=== PATIENT | female | born 1965 | race Caucasian/White ===

== ENCOUNTER 2024-11-26 11:05 | Emergency (ER) | payer BC ==
[~2024-11-26] VITALS: Ht 152.4 cm; Wt 63.5 kg
--- NOTE | 2024-11-26 11:41 | ERN ---
General Chief Complaint: Breast Problem Stated Complaint: LEFT BREAST PAIN Time Seen by MD: 11:09 History of Present Illness Initial Comments 59-year-old female who presents for warmth and tenderness to the left breast beginning about 24 hours ago. She reports that she was in her normal state of health and today woke up with redness and irritation to the left breast. No fevers or systemic illness. She does report a history of breast cancer in that rest in the past requiring surgery and chemotherapy. No open wounds. No d ischarge. No masses. Allergies: Coded Allergies: prochlorperazine (Unverified Allergy, Unknown, 11/26/24) Home Meds Active Scripts Cephalexin (Cephalexin) 500 Mg Tablet, 1 TAB PO TID for 10 Days, #30 TAB 0 Refills Prov:RAISSA GRANADOS DO 11/26/24 Doxycycline Monohydrate (Doxycycline Monohydrate) 100 Mg Capsule, 1 CAP PO BID for 10 Days, #20 CAP 0 Refills Prov:RAISSA GRANADOS DO 11/26/24 Past Medical History Past Medical History: Depression, IBS, Other Medical History Other: PVC CONTRACTIONS, GASTROPARESIS Past Surgical History: Appendectomy, Tonsillectomy, ROS Dictation CONSTITUTIONAL: No chills, no fever, no weakness, no diaphoresis, no malaise. HEAD/FACE: No signs of trauma. EENT: No eye pain, no blurred vision, no tearing, no double vision, no ear pain, no ear discharge, no nose pain, no nasal congestion, no throat pain, no throat swelling, no mouth pain. RESPIRATORY: No cough, no orthopnea, no SOB, no stridor, no wheezing. CARDIOVASCULAR: No chest pain, no edema, no palpitations, no syncope. GASTROINTESTINAL/ABDOMINAL: Left breast pain GENITOURINARY: No abnormal discharge, no dysuria, no frequent urination, no hematuria. No complaints of pain in the genitals. MUSCULOSKELETAL: No back pain, no gout, no joint pain, no joint swelling, no muscle pain, no muscle stiffness, no neck pain. INTEGUMENTARY: No change in color, no change in hair/nails, no dryness, no lesion, no lumps, no rash. NEUROLOGICAL/PSYCH: No anxiety, not depressed, no emotional problem, no headache, no numbness, no pre-existing deficit, no history of seizures, no tremors, no weakness. HEMATOLOGIC/LYMPHATIC: Not anemic, no history of blood clots, no apparent bleeding, no bruising, glands not swollen. All Systems Negative, Except as Noted. Has a positive Physical Exam Physical Exam Dictation VITAL SIGNS: Reviewed. GENERAL APPEARANCE: Alert, oriented x3, no acute distress, obese. HEAD AND FACE: Non-traumatic. EYES: PERRL, pink conjunctivas, eyelid no trauma, anterior chamber clear. EARS: Pinnas intact and no signs of trauma or erythema. Ear canals clear and n o discharge. TMs no erythema. NOSE: No discharge, no bleeding. OROPHARYNX: Mouth normal, teeth no caries, tongue pink. Pharynx clear, no erythema. Tonsils no exudates, no abscesses noted. Mucous membrane moist. NECK: Supple, non-tender, no thyromegaly, no masses, no JVD, no bruits. BREAST: Deferred. CHEST: Left breast redness and tenderness throughout the entire left breast warmth and erythema LUNGS: Clear, well-ventilated, symmetric, no rales, no wheezing, no rhonchi, no stridor, good breath sounds bilaterally. HEART: Regular rate, regular rhythm, no murmur, no gallops. VASCULAR: No peripheral edema. ABDOMEN: Soft, positive bowel sounds, nondistended, no guarding, nontender, no rebound, no masses no hepatomegaly, no splenomegaly, no Berman's sign, no hernias. RECTAL: Deferred. GENITAL: Deferred. NEUROLOGICAL: Normal speech, gross motor function intact, gross sensory function intact. MUSCULOSKELETAL: Neck nontender, full range of motion, back nontender, full range of motion. EXTREMITIES: Nontender, full range of motion. SKIN: Color pink, dry, no turgor, no rash, no lacerations, no abrasions, no contusions. LYMPHATICS: Deferred. Results Laboratory and Microbiology Lab and Micro Result Laboratory Tests Test 11/26/24 11:37 White Blood Count 10.2 K/uL (4.8-10.8) Red Blood Count 4.16 MIL/uL (4.00-5.50) Hemoglobin 12.5 g/dL (12.0-16.0) Hematocrit 37.6 % (36-48) Mean Corpuscular Volume 90.4 fL (79-99) Mean Corpuscular Hemoglobin 30.0 pg (27.0-33.0) Mean Corpuscular Hemoglobin Concent 33.2 g/dL (32.0-36.0) Red Cell Distribution Width 13.2 % (11.0-15.5) Platelet Count 239 K/uL (130-400) Mean Platelet Volume 10.1 fL (7.5-10.5) Immature Granulocyte % (Auto) 0.5 % (0-1) Neutrophils (%) (Auto) 71.2 % (40.0-77.0) Lymphocytes (%) (Auto) 18.2 % (21.0-51.0) L Monocytes (%) (Auto) 8.4 % (3.0-13.0) Eosinophils (%) (Auto) 1.1 % (0.0-8.0) Basophils (%) (Auto) 0.6 % (0.0-5.0) Neutrophils # (Auto) 7.3 K/uL (1.8-7.7) Lymphocytes # (Auto) 1.9 K/uL (1.0-4.8) Monocytes # (Auto) 0.9 K/uL (0.1-1.0) Eosinophils # (Auto) 0.11 K/uL (0.00-0.70) Basophils # (Auto) 0.06 K/uL (0.00-0.20) Absolute Immature Granulocyte (auto 0.05 K/uL (0-1) Nucleated Red Blood Cells 0.0 % (0.0-0.19) Erythrocyte Sedimentation Rate 20 MM/HR (0-30) Sodium Level 140 mmol/L (136-145) Potassium Level 3.7 mmol/L (3.5-5.1) Chloride Level 102 mmol/L (101-111) Carbon Dioxide Level 25 mmol/L (21-32) Blood Urea Nitrogen 16 mg/dL (7-18) Creatinine 1.1 mg/dL (0.5-1.0) H Glomerular Filtration Rate Calc 58 mL/min (>90) Random Glucose 82 mg/dL (70-105) Total Calcium 9.0 mg/dL (8.5-10.1) C-Reactive Protein, Quantitative 157.10 mg/L (0.5-3.0) H MDM CC: Left breast pain in her redness Historian: Patient Comorbidities: History of breast cancer Limitations by social determinants of health: None Differential diagnosis: Mastitis, cellulitis, cancer, other Labs show no leukocytosis. She does have an elevated CRP, normal sed rate. Symptoms most consistent with a mastitis/cellulitis. There was no signs of SIRS or sepsis. She received a dose of IV Ancef here in the ER. I did consider admission for the patient for IV antibiotics, but since she has a relatively unremarkable labs and stable vital signs at this point in time she prefers outpatient trial of antibiotics. We will discharge with cephalexin and doxycycline and recommend PCP follow up or return to the emergency department as needed. ED Course Orders Procedure Category Date Status Time Lactated Ringers PHA 11/26/24 Complete 1000ml (Lactated 11:30 Ketorolac PHA 11/26/24 Complete Tromethamine 15mg/Ml 11:30 Morphine 4mg Syg PHA 11/26/24 Complete (Morphine 4mg Syg) 11:30 Cbc With Differential LAB 11/26/24 Complete 11:26 Basic Metabolic Panel LAB 11/26/24 Complete 11:26 Erythrocyte Sed Rate LAB 11/26/24 Complete 11:26 Crp Quantitative LAB 11/26/24 Complete 11:26 Blood Cult SRINIVAS 11/26/24 In Process 11:36 Cefazolin Sodium PHA 11/26/24 Complete (Ancef) 12:30 Current Medications Medications (Trade) Dose Ordered Sig/Najma Route PRN Reason Start Time Stop Time Status Last Admin Dose Admin Cefazolin Sodium (Ancef) 2 gm ONCE ONCE IVPB 11/26/24 12:30 11/26/24 12:31 DC 11/26/24 12:46 Ketorolac Tromethamine (toRADol) 15 mg ONCE ONCE IV 11/26/24 11:30 11/26/24 11:31 DC 11/26/24 11:52 Lactated Ringer's 1,000 ml @ 0 mls/hr ONCE ONCE IV 11/26/24 11:30 11/26/24 11:31 DC 11/26/24 11:52 Morphine Sulfate (morPHINE 4MG SYG) 4 mg ONCE ONCE IVP 11/26/24 11:30 11/26/24 11:22 DC Vital Signs Date Time Temp Pulse Resp B/P (MAP) Pulse Ox O2 Delivery O2 Flow Rate FiO2 11/26/24 11:56 97.9 85 17 138/69 100 Room Air* 0 21 11/26/24 11:18 98.4 79 19 133/83 97 Room Air 0 DX & DISP Disposition: Discharge Departure Impression: Primary Impression: Mastitis in female Additional Impression: Cellulitis of left breast Condition: Stable Scripts Cephalexin (Cephalexin) 500 Mg Tablet 1 TAB PO TID for 10 Days, #30 TAB 0 Refills Prov: RAISSA GRANADOS DO 11/26/24 Doxycycline Monohydrate (Doxycycline Monohydrate) 100 Mg Capsule 1 CAP PO BID for 10 Days, #20 CAP 0 Refills Prov: RAISSA GRANADOS DO 11/26/24 Additional Instructions: You have mastitis and cellulitis of the left breast. You received a dose of IV antibiotics in the ER. I have also prescribed cephalexin and doxycycline, both of which are antibiotics. As we discussed, take these antibiotics for the next 48 hours. If your symptoms are worsening please return to the emergency department for re-evaluation. Otherwise, I do recommend that you follow up with the primary doctor later this week for re-evaluation. You may need further studies such as an ultrasound or a mammogram. You can take [id number] Tylenol or ibuprofen as needed for pain. I have given you a list of local primary care providers. Please call for a follow up appointment. Referrals: SELF,REFERRAL (PCP) RAISSA GRANADOS DO Nov 26, 2024 11:41
[2024-11-26 11:46] LABS: IMMATURE GRANULOCYTE ABSOLUTE 0.05 K/uL (0-1); NUCLEATED RED BLOOD CELLS 0.0 % (0.0-0.19); PLATELET COUNT (AUTO) 239 K/uL (130-400); RED BLOOD CELL COUNT(AUTO) 4.16 MIL/uL (4.00-5.50); RED CELL DISTRIBUTION WIDTH 13.2 % (11.0-15.5); WHITE BLOOD COUNT (AUTO) 10.2 K/uL (4.8-10.8)
[2024-11-26 11:48] LABS: ERYTHROCYTE SEDIMENTATION RATE 20 MM/HR (0-30)
[2024-11-26] MEDS: LACTATED RINGERS 1000ML 1,000 ML IV ONE (11:52)
[2024-11-26 12:03] LABS: CREATININE 1.1 mg/dL (0.5-1.0); GLOMERULAR FILTR. RATE CALC 58.0 mL/min (>90); GLUCOSE,RANDOM 82.0 mg/dL (70-105); SODIUM SERUM 140.0 mmol/L (136-145); UREA NITROGEN, BLOOD 16.0 mg/dL (7-18)
[2024-11-26] MEDS ORDERED: DOXY-466 PO (13:11)
[2024-11-26] MEDS ORDERED: CEPH500T PO (13:11)
[2024-11-26 14:00] VITALS: BP 149/66; PULSE 69; RESP 17; TEMP 98.3; O2SAT 100
--- NOTE | 2024-11-26 14:09 | NUR ---
DC PATIENT WAS DC'D BY DR DARWIN Magana DC'D PATIENTS IV WITH CATH STILL INTACT AND APPLIED 2X2 GAUZE WITH COBAN, I EXPLAINED TO PATIENT TO FOLLOW UP WITH PCP, PROVIDED INFO BASED ON DIAGNOSIS, PRESCRIPTIONS AND ANSWERED ANY FOLLOW UP QUESTIONS PATIENT AMBULATED OUT OF ED, NO COMPLICATIONS
== END 2024-11-26 14:06 | disposition home or self-care (01) ==
LOC: EDH 11:05
DX: N61.0 Mastitis without abscess (principal); F32.A Depression, unspecified; Z90.49 Acquired absence of other specified parts of digestive tract; Z90.89 Acquired absence of other organs; Z85.3 Personal history of malignant neoplasm of breast
CPT/HCPCS: 99284; 96365; 96361; 96375; 80048; 85025; 85651; 87040 ×2; 86140; 36415; J1885; J7120; J0690

== ENCOUNTER 2024-12-14 05:21 | Emergency (ER) | payer BC ==
[~2024-12-14] VITALS: Ht 152.4 cm; Wt 62.1 kg
[~2024-12-14 05:21] MED LIST: CEPH500T PO; DOXY-466 PO
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
[2024-12-14] MEDS: 0.9%NACL 1000ML 1,000 ML IV SCH (06:16)
[2024-12-14 06:26] LABS: NUCLEATED RED BLOOD CELLS 0.0 % (0.0-0.19); PLATELET COUNT (AUTO) 215 K/uL (130-400); RED BLOOD CELL COUNT(AUTO) 3.62 MIL/uL (4.00-5.50); RED CELL DISTRIBUTION WIDTH 13.4 % (11.0-15.5); WHITE BLOOD COUNT (AUTO) 5.1 K/uL (4.8-10.8)
[2024-12-14 06:39] LABS: CREATININE 1.1 mg/dL (0.5-1.0); GLOMERULAR FILTR. RATE CALC 58.0 mL/min (>90); GLUCOSE,RANDOM 87.0 mg/dL (70-105); SODIUM SERUM 139.0 mmol/L (136-145); UREA NITROGEN, BLOOD 15.0 mg/dL (7-18)
[2024-12-14] MEDS ORDERED: LIDO170S TP (06:40)
[2024-12-14] MEDS ORDERED: EMOL396C TP (06:40)
[2024-12-14 07:06] VITALS: BP 122/72; PULSE 64; RESP 18; TEMP 97.5; O2SAT 99
[2024-12-14 07:40] LABS: BASOPHILS % (MANUAL) 3 % (0-2); EOSINOPHILS % (MANUAL) 1 % (1-6); LYMPHOCYTES % (MANUAL) 32 % (22-44); MAN.DIFF COMMENT-IMPRESSION MANUAL DIFFERENTIAL; MONOCYTES % (MANUAL) 7 % (2-9); REACTIVE LYMPHOCYTES 2 % (0-0); SEGMENTED NEUTROPHILS % 55 % (40-70)
[2024-12-14 07:42] LABS: PLATELET MORPHOLOGY COMMENT ADEQUATE
== END 2024-12-14 07:07 | disposition home or self-care (01) ==
LOC: EDH 05:21
DX: L55.0 Sunburn of first degree (principal); F32.A Depression, unspecified; Z79.899 Other long term (current) drug therapy
CPT/HCPCS: 99283; 96360; 80048; 85025; 83605; 36415; J7030